=== PATIENT | male | born 1985 | race Caucasian/White ===

== ENCOUNTER 2016-09-04 16:19 | Emergency (ER) | payer MEDICAID ==
[~2016-09-04] VITALS: Ht 175.3 cm; Wt 77.1 kg
[2016-09-04] MEDS ORDERED: PENI250T57 PO (18:03)
[2016-09-04] MEDS ORDERED: NORC5TAB PO (18:03)
[2016-09-04 18:36] VITALS: BP 128/71
== END 2016-09-04 18:37 | disposition home or self-care (01) ==
LOC: M ED 17:59
DX: K08.9 Disorder of teeth and supporting structures, unspecified (principal); R68.84 Jaw pain

== ENCOUNTER 2017-11-07 04:28 | Emergency (ER) | payer MEDICAID ==
[2017-11-07] MEDS: NS 1,000 ML IV (08:16)
[2017-11-07 08:21] LABS: BASO % 0.2 % (0.0-1.0); EOS # 0.1 10^3/uL (0.0-0.50); EOS % 0.4 % (0.0-3.0); HEMATOCRIT 41.3 % (42.0-52.0); HEMOGLOBIN 14.7 g/dl (13.5-17.5); IMMATURE GRANULOCYTE % 0.2 % (0-3.0); LYMPH # 2.2 10^3/uL (1.5-4.5); LYMPH % 18.3 % (24.0-44.0); MEAN CORPUSCULAR HEMOGLOBIN 30.2 pg (27.0-33.0); MEAN CORPUSCULAR HGB CONC 35.6 g/dl (32.0-36.5); MEAN CORPUSCULAR VOLUME 84.8 fl (80.0-96.0); MONO # 0.9 10^3/uL (0.0-0.8); NEUTROPHILS # 8.9 10^3/uL (1.8-7.7); NEUTROPHILS % 73.9 % (36.0-66.0); PLATELET COUNT, AUTOMATED 222 10^3/uL (150-450); RED BLOOD COUNT 4.87 10^6/uL (4.30-6.10); RED CELL DISTRIBUTION WIDTH 12.5 % (11.5-14.5); WHITE BLOOD COUNT 12.1 10^3/uL (4.0-10.0)
[2017-11-07 08:47] LABS: AMPHETAMINES LEVEL URINE POSITIVE (NEGATIVE); BARBITURATES URINE NEGATIVE (NEGATIVE); BENZODIAZEPINES URINE NEGATIVE (NEGATIVE); CANNABINOIDS URINE NEGATIVE (NEGATIVE); COCAINE METABOLITE URINE NEGATIVE (NEGATIVE); METHADONE URINE NEGATIVE (NEGATIVE); OPIATES URINE NEGATIVE (NEGATIVE); PHENCYCLIDINE URINE NEGATIVE (NEGATIVE)
[2017-11-07 08:49] LABS: ALBUMIN 4.7 GM/DL (3.2-5.2); ALBUMIN/GLOBULIN RATIO 1.42 (1.00-1.93); ALKALINE PHOSPHATASE 100 U/L (45-117); ALT/SGPT 31 U/L (12-78); AMYLASE 23 U/L (25-115); ANION GAP 8 MEQ/L (8-16); AST/SGOT 30 U/L (7-37); BILIRUBIN,DIRECT 0.2 MG/DL (0.0-0.2); BILIRUBIN,TOTAL 0.6 MG/DL (0.2-1.0); BLOOD UREA NITROGEN 9 MG/DL (7-18); CALCIUM LEVEL 9.4 MG/DL (8.5-10.1); CARBON DIOXIDE LEVEL 26 MEQ/L (21-32); CHLORIDE LEVEL 105 MEQ/L (98-107); CREATININE FOR GFR 0.87 MG/DL (0.70-1.30); GLOMERULAR FILTRATION RATE > 60.0 (>60); GLUCOSE, FASTING 110 MG/DL (70-100); LIPASE 76 U/L (73-393); POTASSIUM SERUM 4.1 MEQ/L (3.5-5.1); SODIUM LEVEL 139 MEQ/L (136-145)
== END 2017-11-07 09:41 | disposition home or self-care (01) ==
LOC: M ED 04:28
DX: F15.90 Other stimulant use, unspecified, uncomplicated (principal); F17.200 Nicotine dependence, unspecified, uncomplicated
CPT/HCPCS: 82150

== ENCOUNTER 2018-05-31 15:39 | Emergency (ER) | payer MEDICAID | END 2018-05-31 17:09 | disposition home or self-care (01) | LOC: M ED 15:39 | DX: M51.26 Other intervertebral disc displacement, lumbar region (principal); F17.210 Nicotine dependence, cigarettes, uncomplicated | CPT/HCPCS: 72131 ==

== ENCOUNTER → 2019-12-20 | Outpatient (REF) | payer OTHER ==
[~2019-12-20] MED LIST: IBUP-1022 PO; NORC1TAB7 PO; PENI250T57 PO
== END ==
LOC: M LAB REF 14:45
PROVIDERS: ATTEND Surgery
DX: Z03.818 Encounter for observation for suspected exposure to other biological agents ruled out (principal); Z11.59 Encounter for screening for other viral diseases

== ENCOUNTER → 2020-09-03 | Outpatient (REF) | payer OTHER | LOC: M LAB REF 11:39 | PROVIDERS: ATTEND Surgery | DX: U07.1 COVID-19 (principal) ==

== ENCOUNTER 2021-03-21 12:07 | Emergency (ER) | payer MEDICAID, OTHER ==
[~2021-03-21] VITALS: Ht 175.3 cm; Wt 81.0 kg
[2021-03-21 13:47] VITALS: BP 130/92
== END 2021-03-21 13:30 | disposition home or self-care (01) ==
LOC: M ED 12:07
DX: J20.9 Acute bronchitis, unspecified (principal); F17.200 Nicotine dependence, unspecified, uncomplicated

== ENCOUNTER 2022-04-26 05:23 | Emergency (ER) | payer MEDICAID ==
[~2022-04-26] VITALS: Ht 175.3 cm; Wt 77.3 kg
[2022-04-26] MEDS ORDERED: EXCETAB32 PO (05:36)
[2022-04-26] MEDS ORDERED: APAP500T10 PO (05:36)
[2022-04-26] MEDS ORDERED: NS 1,000 ML IV ONE (07:40)
[2022-04-26] MEDS ORDERED: MORPHINE 2 MG/ML 1ML VIAL IV ONE (07:40)
[2022-04-26] MEDS ORDERED: ONDANSETRON 4MG 2ML VIAL IV ONE (07:40)
[2022-04-26 07:56] LABS: BASO % 0.5 % (0.0-1.0); EOS # 0.5 10^3/uL (0.0-0.5); EOS % 6.7 % (0.0-3.0); HEMATOCRIT 40.4 % (42.0-52.0); HEMOGLOBIN 13.5 g/dl (13.5-17.5); LYMPH # 0.3 10^3/uL (1.5-5.0); LYMPH % 3.8 % (24.0-44.0); MEAN CORPUSCULAR HGB CONC 33.4 g/dl (32.0-36.5); MEAN CORPUSCULAR VOLUME 86.9 fl (80.0-96.0); MONO # 0.7 10^3/uL (0.0-0.8); NEUTROPHILS # 5.9 10^3/uL (1.5-8.5); NEUTROPHILS % 79.6 % (36.0-66.0); PLATELET COUNT, AUTOMATED 236 10^3/uL (150-450); RED BLOOD COUNT 4.65 10^6/uL (4.30-6.10); WHITE BLOOD COUNT 7.4 10^3/uL (4.0-10.0)
[2022-04-26] MEDS ORDERED: ISOVUE-370 76% 100ML VIAL As Ordered ONE (08:03)
[2022-04-26 08:27] LABS: ALT/SGPT 27 U/L (12-78); BILIRUBIN,DIRECT 0.1 MG/DL (0.0-0.2); BILIRUBIN,TOTAL 0.3 MG/DL (0.2-1.0); BLOOD UREA NITROGEN 13 MG/DL (7-18); CALCIUM LEVEL 9.1 MG/DL (8.5-10.1); CARBON DIOXIDE LEVEL 26 MEQ/L (21-32); CHLORIDE LEVEL 103 MEQ/L (98-107); CREATININE FOR GFR 1.14 MG/DL (0.70-1.30); GLOMERULAR FILTRATION RATE > 60.0 (>60); GLUCOSE, FASTING 119 MG/DL (70-100); LIPASE 129 U/L (73-393); POTASSIUM SERUM 3.5 MEQ/L (3.5-5.1); SODIUM LEVEL 135 MEQ/L (136-145); TOTAL PROTEIN 7.9 GM/DL (6.4-8.2)
[2022-04-26] MEDS ORDERED: KETOROLAC 30 MG/ML 1ML VIAL IV ONE (09:05)
[2022-04-26] MEDS ORDERED: ONDA4TAB6 PO (09:40)
[2022-04-26 10:01] VITALS: BP 129/62
== END 2022-04-26 10:03 | disposition home or self-care (01) ==
LOC: M ED 05:23
DX: R10.9 Unspecified abdominal pain (principal); K56.7 Ileus, unspecified; F17.200 Nicotine dependence, unspecified, uncomplicated; F16.10 Hallucinogen abuse, uncomplicated; Z79.899 Other long term (current) drug therapy
CPT/HCPCS: 36415; 74177; 80047; 80048; 80076; 83605; 83690; 85025; 87040; 96361; 96374; 96375; 99284; J1885; J2270; J2405

== ENCOUNTER 2023-09-29 11:05 | Emergency (ER) | payer MEDICAID ==
[~2023-09-29] VITALS: Ht 175.3 cm; Wt 74.2 kg
[~2023-09-29 11:05] MED LIST changes: +APAP500T10 PO; +EXCETAB32 PO; +ONDA4TAB6 PO
[2023-09-29 11:22] VITALS: BP 138/81; TEMP 98.7; O2SAT 99
== END 2023-09-29 13:31 | disposition left against medical advice (07) ==
LOC: EDBD 11:05 → M ED 11:05
DX: R10.9 Unspecified abdominal pain (principal); R11.2 Nausea with vomiting, unspecified; Z53.20 Procedure and treatment not carried out because of patient's decision for unspecified reasons; A69.20 Lyme disease, unspecified; B19.9 Unspecified viral hepatitis without hepatic coma; F17.200 Nicotine dependence, unspecified, uncomplicated; Z87.11 Personal history of peptic ulcer disease

== ENCOUNTER 2024-06-30 21:28 | Emergency (ER) | payer SELFPAY ==
[~2024-06-30] VITALS: Ht 175.3 cm; Wt 75.0 kg
[~2024-06-30 21:28] MED LIST changes: +ONDA-282 PO; -ONDA4TAB6 PO
[2024-06-30 21:32] VITALS: BP 138/64; TEMP 98.7; O2SAT 98
== END 2024-07-01 00:33 | disposition left against medical advice (07) ==
LOC: M ED 21:28
DX: Z53.21 Procedure and treatment not carried out due to patient leaving prior to being seen by health care provider (principal)